=== PATIENT | female | born 1985 | race Caucasian/White ===

== ENCOUNTER 2017-01-08 11:02 | Emergency (ER) | payer OTHER ==
[~2017-01-08] VITALS: Ht 165.1 cm; Wt 46.7 kg
== END 2017-01-08 12:07 | disposition home or self-care (01) ==
LOC: ED 11:02
DX: H53.8 Other visual disturbances (principal); Z98.890 Other specified postprocedural states; Z98.818 Other dental procedure status
CPT/HCPCS: 99282